=== PATIENT | male | born 1955 | race Caucasian/White ===

== ENCOUNTER 2016-09-30 08:04 | Outpatient (CLI) | payer BC ==
[2016-09-30 09:22] LABS: CK (CPK) 171 U/L (30-200); Calc. Creatinine Clearance 0 mL/min (70-130); Estimated GFR-MDRD Greater than 90; LDL Cholesterol, Calculated 176 mg/dL
== END 2016-09-30 08:05 | disposition home or self-care (01) ==
LOC: BURLAB 08:04
PROVIDERS: ATTEND Internal Medicine
DX: E78.00 Pure hypercholesterolemia, unspecified (principal); E11.9 Type 2 diabetes mellitus without complications
CPT/HCPCS: 36415; 80061; 82550; 82565

== ENCOUNTER 2017-01-05 07:30 | Outpatient (CLI) | payer BC ==
[2017-01-05 08:13] LABS: Hemoglobin 15.1 g/dL (14.0-18.0); Mean Corpuscular HGB CONC 34.4 g/dL (32.0-36.0); Mean Corpuscular Hemoglobin 30.4 pg (27.0-31.0); Mean Corpuscular Volume 88.5 fl (80.0-94.0); Mean Platelet Volume 6.4 fL (7.4-10.4); Platelet Count 204 thou/uL (130-400); RBC Distribution Width 11.4 % (11.5-14.5); Red Blood Cell (RBC) Count 4.96 mill/uL (4.70-6.10); White Blood Cell (WBC) Count 4.9 thou/uL (4.8-10.8)
[2017-01-05 08:32] LABS: ALT (SGPT) 16 U/L (8-55); AST (SGOT) 18 U/L (5-34); Albumin 4.4 g/dL (3.4-4.8); Alkaline Phosphatase 71 U/L (40-150); Anion Gap 11 mmol/L (10-20); BUN (Urea Nitrogen) 14 mg/dL (8.4-25.7); Bilirubin, Total 0.5 mg/dL (0.2-1.2); CK (CPK) 135 U/L (30-200); Calc. Creatinine Clearance 0 mL/min (70-130); Calcium 9.2 mg/dL (7.8-10.44); Carbon Dioxide 29 mmol/L (23-31); Cardiac Risk 2.7 (Less than 4.5); Chloride 107 mmol/L (98-107); Cholesterol 163 mg/dL (< 200 Desired); Estimated GFR-MDRD Greater than 90; Globulin 2.7 g/dL (2.4-3.5); Glucose 86 mg/dL (80-115); HDL Cholesterol 61 mg/dL (>60 Neg Risk); LDL Cholesterol, Calculated 90 mg/dL; Protein, Total 7.1 g/dL (5.8-8.1); Sodium 143 mmol/L (136-145); Triglycerides 62 mg/dL (Less than 150)
[2017-01-05 08:48] LABS: PSA-Symptomatic (DIAGNOSTIC) 0.79 ng/mL (0-4.0); Thyroid Stimulating Hormone 1.2715 uIU/mL (0.35-4.94); Vitamin D, 25 Hydroxy 34.5 ng/mL (> 30.0)
== END 2017-01-05 07:31 | disposition home or self-care (01) ==
LOC: BURLAB 07:30
PROVIDERS: ATTEND Internal Medicine
DX: Z00.00 Encounter for general adult medical examination without abnormal findings (principal); E78.00 Pure hypercholesterolemia, unspecified; N40.0 Benign prostatic hyperplasia without lower urinary tract symptoms; E55.9 Vitamin D deficiency, unspecified; M79.7 Fibromyalgia; R53.83 Other fatigue
CPT/HCPCS: 36415; 80053; 80061; 82306; 82550; 84153; 84443; 85027

== ENCOUNTER 2018-01-23 15:21 | Outpatient (CLI) | payer BC ==
--- NOTE | 2018-01-23 23:06 | RAD ---
LEFT FOOT THREE VIEWS: Date: 01-23-18 FINDINGS: NO fracture or periosteal reaction was seen. All bones appear intact. A tiny calcaneal spur was noted . IMPRESSION: No acute findings. POS: HOME
== END 2018-01-23 15:22 | disposition home or self-care (01) ==
LOC: BURRAD 15:21
PROVIDERS: ATTEND Family Medicine
DX: M79.672 Pain in left foot (principal)

== ENCOUNTER 2021-10-27 12:01 | Emergency (ER) | payer BC | END 2021-10-27 13:04 | disposition home or self-care (01) | LOC: BURERS 12:01 | DX: S00.83XA Contusion of other part of head, initial encounter (principal); S00.522A Blister (nonthermal) of oral cavity, initial encounter; I10 Essential (primary) hypertension; E78.5 Hyperlipidemia, unspecified; X58.XXXA Exposure to other specified factors, initial encounter; Z87.442 Personal history of urinary calculi; Z79.899 Other long term (current) drug therapy | CPT/HCPCS: 99283 ==

== ENCOUNTER 2022-01-31 15:08 | Emergency (ER) | payer BC | END 2022-01-31 16:21 | disposition home or self-care (01) | LOC: BURERS 15:08 | DX: B34.9 Viral infection, unspecified (principal); I10 Essential (primary) hypertension; E78.2 Mixed hyperlipidemia; Z87.442 Personal history of urinary calculi; Z79.899 Other long term (current) drug therapy | CPT/HCPCS: 87804; 99283 ==